=== PATIENT | female | born 2000 | race Caucasian/White ===

== ENCOUNTER → 2024-05-02 07:53 | Outpatient (BNVA) | payer BC, SELFPAY | PROVIDERS: Visit Provider Nurse Practitioner Women's Health | DX: N92.6 Irregular menstruation, unspecified (principal); Z34.90 Encounter for supervision of normal pregnancy, unspecified, unspecified trimester | CPT/HCPCS: 81025; 84702 ==

== ENCOUNTER → 2024-05-07 10:33 | Outpatient (BNVA) | payer BC, SELFPAY | PROVIDERS: Visit Provider Nurse Practitioner Women's Health | DX: Z36.9 Encounter for antenatal screening, unspecified (principal) | CPT/HCPCS: 76801 ==

== ENCOUNTER → 2024-05-23 08:33 | Outpatient (BNVA) | payer BC, SELFPAY | PROVIDERS: Visit Provider Nurse Practitioner Women's Health | DX: Z36.9 Encounter for antenatal screening, unspecified (principal) | CPT/HCPCS: 76801 ==

== ENCOUNTER → 2024-06-22 16:30 | Outpatient (BNVA) | payer BC, SELFPAY | PROVIDERS: Visit Provider Nurse Practitioner Women's Health | DX: O20.9 Hemorrhage in early pregnancy, unspecified (principal); Z3A.11 11 weeks gestation of pregnancy | CPT/HCPCS: 84443; 84702 ==

== ENCOUNTER 2024-06-25 15:12 | Emergency (ER) | payer BC, SELFPAY ==
[2024-06-25 15:27] VITALS: BP 116/77; PULSE 91; RESP 16; TEMP 36.7; O2SAT 98; BMI 22.8
--- NOTE | 2024-06-25 15:34 | USR_ITS ---
PROCEDURE INFORMATION: Exam: US , Limited Exam date and time: 06/25/2024 4:03 PM Age: 23 years old Clinical indication: Screening exam; Routine US, uterus; Additional info: 16 wks preg; Pain LABS AND CLINICAL REPORTS: Gestational age (Established): 15 w 5 d Estimated due date (Established): 12/12/2024 TECHNIQUE: Imaging protocol: Real-time ultrasound of the maternal uterus with image documentation. Exam focused on the clinical indication. COMPARISON: US OB <= 14 weeks fetus [id number] 05/23/2024 8:35 AM FINDINGS: Gestation: Live intrauterine gestation. heart rate: 167 bpm Placenta: Fundal placenta. No previa. BIOMETRY: Estimated weight: 130.94 g. EFW by AC, BPD, FL, HC, [place] 1985, 36.1% percentile Biparietal diameter (BPD): 3.34 cm. EGA (BPD) is 16 w 3 d. 76.2 % percentile Head circumference (HC): 11.46 cm. EGA (HC) is 15 w 4 d. 27.9 % percentile Abdominal circumference (AC): 9.38 cm. EGA (AC) is 15 w 4 d. 45.4 % percentile Femur length (FL): 1.94 cm. EGA (FL) is 15 w 5 d. 47.3 % percentile HC/AC: 1.22. (Normal range: 1.06 - 1.35) FL/HC: 16.93. (Normal range: 13.59 - 16.59) FL/BPD: 58.08 FL/AC: 20.68 MATERNAL: Cervix: Cervical length measures 3.3 cm. US/US OB limited [id number] IMPRESSION: Intrauterine gestation. Unremarkable limited examination.
--- NOTE | 2024-06-25 15:38 | ED_ITS ---
HPI - Abdominal Pain 2 General: Chief Complaint: Abdominal Pain Stated Complaint: abd pain 16 weeks preg Time Seen by Provider: 06/25/24 15:32 Source: patient Mode of arrival: ambulatory Limitations: no limitations History of Present Illness: Patient is a yaya 23-year-old female presents to ED today at the recommendation of her OB office for evaluation of some now resolved left sided lower abdominal pain. She is approximately 16 weeks . She states she does have a history of a subchorionic hemorrhage although ultrasound performed approximately a month ago said it was small/trivial. She states earlier today she began having some left-sided lower abdominal/pelvic pain that lasted an hour or so before subsiding. It has not returned. Patient states last week she had some dark red blood bleeding that lasted a few days before subsiding. It has not resumed. OB provider is Dr. Cano she arrives in no acute distress with stable vital signs. Denies urinary symptoms. MD elicited complaint: abdominal pain Onset (ago): hour(s) Pain Consistency: now resolved Location: LLQ Severity: mild Quality: cramping Radiation: none Migration to: no migration Exacerbating factors: nothing Relieving factors: nothing Associated Symptoms: Reports no associated symptoms; Denies change in bowel habits, chills, diarrhea, dysuria, fever(s), nausea and vomiting Related Data Patient : Yes Home Medications Medication Instructions Recorded Confirmed vits no.126-ferrous fum tab PO DAILY 05/02/24 06/05/24 28 mg iron-folic acid 800 mcg tablet (Classic ) Allergies Allergy/AdvReac Type Severity Reaction Status Date / Time No Known Allergies Allergy Verified 06/25/24 15:30 Review of Systems 2 Const: Denies: fever(s), chills, body aches, fatigue or malaise Card: Denies: chest pain Resp: Denies: dyspnea GI: Reports: abdominal pain (now resolved); Denies: nausea, vomiting, diarrhea or change in bowel habits : Reports: vaginal bleeding (last week; none since) and pelvic pain (now resolved ); Denies: flank pain, difficulty voiding, dysuria, urinary frequency, urinary urgency, urinary hesitancy, vaginal odor or vaginal discharge Musc: Denies: neck pain, back pain, extremity pain or joint pain Skin/Breast: Denies: rash Neuro: Denies: headache(s), numbness in extremities, weakness in extremities, sensory changes or dizziness PFSH ED 2 PFSH: Social History Smoking and tobacco/nicotine status: never used tobacco/nicotine Physical Exam 2 Const: COMMON NORMALS: no acute distress, average body habitus, patient oriented x3, no limitations, healthy appearing, alert and well nourished Resp: COMMON NORMALS: normal respiratory effort and clear to auscultation bilaterally AUSCULTATION: clear to auscultation bilaterally Cardio: COMMON NORMALS: regular rate and regular rhythm RATE: regular rate RHYTHM: regular rhythm GI: COMMON NORMALS: Normal to inspection, nondistended, normoactive bowel sounds present, Soft to palpation, non-tender, No hepatosplenomegaly present and no masses INSPECTION: Yes normal to inspection and Yes gravid abdomen P ALPATION: Yes Soft to palpation and Yes No hepatosplenomegaly present : COMMON NORMALS: Yes no CVA tenderness BLADDER/KIDNEY EXAM: Yes no CVA tenderness Back/Pelvis: COMMON NORMALS: no CVA tenderness and thoracic and lumbar spine normal to inspection Neuro: COMMON NORMALS: patient oriented x3 SENSORIUM/ORIENTATION: Yes alert Course 2 Vital Signs: Vital signs: Vital Signs Temperature 98.1 F 06/25/24 15:27 Pulse Rate 91 06/25/24 15:27 Respiratory Rate 16 06/25/24 15:27 Blood Pressure 116/77 06/25/24 15:27 Pulse Oximetry 98 06/25/24 15:27 MDM - Abdominal Pain Medical Decision Making Patient's exam is benign. Her vital signs are stable. She appears in no acute distress. Her blood work is nonactionable. UA apart from 1+ blood is normal. Her OB ultrasound is unremarkable. Patient will be allowed discharge with follow-up with her OB provider. Return to ED precautions given. Medical Records I reviewed the patient's medical records. Lab Data I reviewed the patient's lab results. 06/25/24 15:47 06/25/24 15:47 Labs/Radiology: Laboratory Results WBC 10.09 10^3/uL (3.29-11.43) 06/25/24 15:47 RBC 4.04 10^6/uL (3.85-5.65) 06/25/24 15:47 Hgb 12.10 g/dL (11.27-16.99) 06/25/24 15:47 Hct 37.7 % (36-47) 06/25/24 15:47 MCV 93.3 fl (85-98) 06/25/24 15:47 MCH 30.0 pg (27-33) 06/25/24 15:47 MCHC 32.1 g/dL (30-55) 06/25/24 15:47 RDW 12.8 % (12.1-15.1) 06/25/24 15:47 Plt Count 221 10^3/cmm (157-399) 06/25/24 15:47 MPV 10.1 fL (7.4-10.4) 06/25/24 15:47 Neut % (Auto) 78.3 % 06/25/24 15:47 Lymph % (Auto) 15.0 % 06/25/24 15:47 Mccracken % (Auto) 4.4 % 06/25/24 15:47 Eos % (Auto) 1.5 % 06/25/24 15:47 Baso % (Auto) 0.4 % 06/25/24 15:47 Neut # (Auto) 7.91 10^3/uL (1.8-7.7) H 06/25/24 15:47 Lymph # (Auto) 1.5 10^3/uL (0.8-4.8) 06/25/24 15:47 M[place]racken # (Auto) 0.4 10^3/uL (0.2-0.9) 06/25/24 15:47 Eos # (Auto) 0.2 10^3/uL (0.0-0.8) 06/25/24 15:47 Baso # (Auto) 0.0 10^3/uL (0.0-0.1) 06/25/24 15:47 Nucleated RBC % (auto) 0 % 06/25/24 15:47 Nucleated RBCs # 0.0 /100WBC 06/25/24 15:47 Sodium 135 mmol/L (136-145) L 06/25/24 15:47 Potassium 4.0 mmol/L (3.5-5.1) 06/25/24 15:47 Chloride 102 mmol/L (98-107) 06/25/24 15:47 Carbon Dioxide 21 mmol/L (22-29) L 06/25/24 15:47 Anion Gap 16.0 (5-19) 06/25/24 15:47 BUN 11 mg/dL (6-20) 06/25/24 15:47 Creatinine 0.5 mg/dL (0.5-0.9) 06/25/24 15:47 GFR Calculation 151.6 mL/min (90-130) H 06/25/24 15:47 Glucose 91 mg/dL (65-115) 06/25/24 15:47 Calculated Osmolality 279 mOsm/kg (285-295) L 06/25/24 15:47 Calcium 8.9 mg/dL (8.5-10.5) 06/25/24 15:47 Total Bilirubin 0.2 mg/dL (0.15-1.2) 06/25/24 15:47 AST 13 U/L (0-32) 06/25/24 15:47 ALT 7 U/L (0-33) 06/25/24 15:47 Alkaline Phosphatase 46 U/L (35-105) 06/25/24 15:47 Total Protein 7.0 g/dL (6.6-8.7) 06/25/24 15:47 Albumin 4.0 g/dL (3.5-5.2) 06/25/24 15:47 Globulin 3.0 g/dL (1.3-4.6) 06/25/24 15:47 Lipase 35 U/L (13-60) 06/25/24 15:47 Urine Color Yellow (Yellow) 06/25/24 15:51 Urine Appearance Clear (CLEAR) 06/25/24 15:51 Urine pH 6.0 (5-7) 06/25/24 15:51 Ur Specific [place] 1.023 (1.005-1.030) 06/25/24 15:51 Urine Protein Negative (Negative) 06/25/24 15:51 Urine Glucose (UA) Negative (Normal) 06/25/24 15:51 Urine Ketones Negative (Negative) 06/25/24 15:51 Urine Blood 1+ (Negative) A 06/25/24 15:51 Urine Nitrate Negative (Negative) 06/25/24 15:51 Urine Bilirubin Negative (Negative) 06/25/24 15:51 Urine Urobilinogen 1.0 mg/dL (Negative) 06/25/24 15:51 Ur Leukocyte Esterase Negative (Negative) 06/25/24 15:51 Urine RBC 3-5 /hpf (0-2) 06/25/24 15:51 Urine WBC 0-5 /hpf (0-5) 06/25/24 15:51 Ur Squamous Epith Cells 0-5 /hpf (0-5) 06/25/24 15:51 Amorphous Sediment Not Reportable 06/25/24 15:51 Urine Bacteria Trace /hpf (NONE) 06/25/24 15:51 Hyaline Casts 1.65 /lpf 06/25/24 15:51 XR interpretation done by ED provider, pending radiology final review (normal per US tech) Discharge Plan Discharge Patient Disposition: Home Clinical Impression: Resolved abdominal pain Condition: Stable Prescriptions: No Action Classic 28 mg iron- 800 mcg tablet PO DAILY Discharge Orders: Discharge ED (Routine); Ordered 06/25/24 Ordered By: Amy Hall Referrals: Miko Cano MD [Primary Care Provider] - Activity Restrictions/Additional Instructions: As we discussed you can continue following up with your OB provider. You may return to the emergency department for worsening or severe pain, severe vaginal bleeding, fevers, generally feeling worse or unwell, or any other concerns you may have. Coding Level of Care Code ED Assurance Senior Manager for [employer]
[2024-06-25 15:56] LABS: Charge for UA Resulting for Rev
[2024-06-25 15:59] LABS: Basophils % 0.4 %; Eosinophils # 0.2 10^3/uL (0.0-0.8); Eosinophils % 1.5 %; Hematocrit 37.7 % (36-47); Lymphocytes # 1.5 10^3/uL (0.8-4.8); Mean Corpuscular HGB Conc 32.1 g/dL (30-55); Mean Corpuscular Volume 93.3 fl (85-98); Mean Platelet Volume 10.1 fL (7.4-10.4); Monocytes # 0.4 10^3/uL (0.2-0.9); Monocytes % 4.4 %; Neutrophils # 7.91 10^3/uL (1.8-7.7); Neutrophils % 78.3 %; Nucleated Red Blood Cells % 0 %; Platelet Count 221 10^3/cmm (157-399); Red Blood Count 4.04 10^6/uL (3.85-5.65); Red Cell Distribution Width 12.8 % (12.1-15.1); White Blood Count 10.09 10^3/uL (3.29-11.43)
[2024-06-25 16:01] LABS: Bilirubin Urine Negative (Negative); Blood Urine 1+ (Negative); Glucose Urine UA Negative (Normal); Ketones Urine Negative (Negative); Leukocyte Esterase Urine Negative (Negative); Nitrate Urine Negative (Negative); Protein Urine Negative (Negative); Specific Gravity, Urine 1.023 (1.005-1.030); Urine Appearance Clear (CLEAR); Urine Color Yellow (Yellow)
[2024-06-25 16:04] LABS: Bacteria Urine Trace /hpf; Hyaline Casts Urine 1.65 /lpf; Squamous Epithelial Cell Urine 0-5 /hpf (0-5); WBC Urine 0-5 /hpf (0-5)
[2024-06-25 16:15] LABS: Alanine Aminotransferase 7 U/L (0-33); Alkaline Phosphatase 46 U/L (35-105); Aspartate Amino Transferase 13 U/L (0-32); Blood Urea Nitrogen 11 mg/dL (6-20); Calcium 8.9 mg/dL (8.5-10.5); Carbon Dioxide 21 mmol/L (22-29); Chloride 102 mmol/L (98-107); Creatinine Clr Calc Pharmacy 138.6809; Glomerular Filtration Rate 151.6 mL/min (90-130); Glucose 91 mg/dL (65-115); Lipase 35 U/L (13-60); Osmolality Calculated 279 mOsm/kg (285-295); Sodium 135 mmol/L (136-145); Total Bilirubin 0.2 mg/dL (0.15-1.2)
== END 2024-06-25 17:06 | disposition home or self-care (01) ==
PROVIDERS: Emergency Medicine; Emergency Provider Physician Assistant; PCP Obstetrics & Gynecology
DX: O26.892 Other specified pregnancy related conditions, second trimester (principal); R10.32 Left lower quadrant pain; Z3A.16 16 weeks gestation of pregnancy
CPT/HCPCS: 36415; 76815; 80053; 81003; 81015; 83690; 85025; 99284

== ENCOUNTER → 2024-07-04 09:27 | Outpatient (BNVA) | payer BC, SELFPAY | PROVIDERS: PCP Obstetrics & Gynecology; Visit Provider Nurse Practitioner Women's Health | DX: Z34.90 Encounter for supervision of normal pregnancy, unspecified, unspecified trimester (principal) | CPT/HCPCS: 84443 ==

== ENCOUNTER → 2024-08-02 09:50 | Outpatient (BNVA) | payer BC, SELFPAY | PROVIDERS: Visit Provider Obstetrics & Gynecology | DX: Z36.9 Encounter for antenatal screening, unspecified (principal) | CPT/HCPCS: 76805 ==

== ENCOUNTER → 2024-08-29 08:55 | Outpatient (BNVA) | payer BC, SELFPAY | PROVIDERS: Visit Provider Nurse Practitioner Women's Health | DX: O99.282 Endocrine, nutritional and metabolic diseases complicating pregnancy, second trimester (principal); E03.9 Hypothyroidism, unspecified; Z3A.11 11 weeks gestation of pregnancy | CPT/HCPCS: 82950; 84315; 84443; 85025 ==